=== PATIENT | female | born 1965 | race Caucasian/White ===

== ENCOUNTER → 2017-03-29 | Outpatient (CLI) | payer BC ==
[~2017-03-29] MED LIST: ASPEC325 PO; ESCI1TAB10 PO; FEXO1TAB46 PO; MONT1TAB3 PO; NSNN50; POTA99TA PO; RANI300T PO; RANI300T2 PO; RXC5 PO; TRAZ-119 PO; VNTHFA/IN INH
[2017-03-29 13:18] LABS: BLOOD UREA NITROGEN 9 mg/dl (7-18); CALCIUM 9.2 mg/dl (8.5-10.1); CARBON DIOXIDE 27 mmol/L (21-32); CREATININE 0.92 mg/dl (0.60-1.20); GLUCOSE 84 mg/dl (70-99); POTASSIUM 4.1 mmol/L (3.5-5.1); SODIUM 136 mmol/L (136-145)
== END | disposition home or self-care (01) ==
LOC: C.LABMFLN 09:21
PROVIDERS: ATTEND Family Medicine
DX: R10.9 Unspecified abdominal pain (principal); L60.3 Nail dystrophy; E87.6 Hypokalemia

== ENCOUNTER → 2017-04-12 | Outpatient (CLI) | payer BC ==
[~2017-04-12] MED LIST changes: +GADAVIST IV PRN
--- NOTE | 2017-04-12 09:21 | DIAGNOSTIC IMAGING REPORT ---
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 There is no restricted diffusion to suggest acute or subacute infarction. The midline structures including the corpus callosum, brainstem, optic chiasm, and pituitary gland appear unremarkable. Nonspecific mildly increased size of the pineal gland is noted without discrete mass. Degenerative changes of the cervical spine are noted. No acute intracranial hemorrhage, midline shift, abnormal extra-axial collections or hydrocephalus. Moderate multifocal areas of T2/FLAIR prolongation are noted within the periventricular, subcortical and deep white matter of the cerebral hemispheres bilaterally. There is no abnormal intra-axial or extra-axial enhancement identified. The major flow voids at the level of the skull base appear to be patent. Minimal amount of fluid is seen within the right mastoid air cells. Left mastoid air cells are generally clear. Minimal mucosal thickening of the maxillary and ethmoid sinuses. The scalp, calvarium and soft tissues are within normal limits. IMPRESSION: 1. No acute intracranial abnormality identified. 2. Moderate degree of multifocal T2/FLAIR hyperintensities throughout the periventricular, subcortical and deep white matter of the cerebral hemispheres bilaterally are nonspecific findings. Findings would favor chronic microvascular ischemic changes, however demyelinating disease and/or gliosis from chronic migraines are additional differential considerations. 3. No abnormal enhancement. The above report was generated using voice recognition software. It may contain grammatical, syntax or spelling errors. Electronically signed by: Sven Ingram M.D. 04/12/2017 9:19 AM Dictated Date/Time: 04/12/2017 9:11 AM
== END | disposition home or self-care (01) ==
LOC: C.MRI 07:53
PROVIDERS: ATTEND Family Medicine
DX: G43.009 Migraine without aura, not intractable, without status migrainosus (principal)